=== PATIENT | male | born 1990 | race Caucasian/White ===

== ENCOUNTER 2021-10-23 08:30 | Emergency (ER) | payer BC, MEDICAID ==
[2021-10-23 09:43] LABS: CORONAVIRUS COVID-19 NAA NEGATIVE (NEGATIVE)
== END 2021-10-23 10:39 | disposition home or self-care (01) ==
LOC: DL.ED 08:30
DX: J02.0 Streptococcal pharyngitis (principal); Z88.0 Allergy status to penicillin; Z86.16 Personal history of COVID-19; Z20.822 Contact with and (suspected) exposure to COVID-19
CPT/HCPCS: 0240U; 87081; 87430; 99283